=== PATIENT | female | born 1980 | race Two or more races ===

== ENCOUNTER 2017-02-18 11:31 | Emergency (ER) | payer SELFPAY ==
[~2017-02-18] VITALS: Ht 157.5 cm; Wt 111.1 kg
[~2017-02-18 11:31] MED LIST: FLUT1DIS3 IH; Guaifenesin/Dextromethorphan PO; PRED20TA PO
[2017-02-18 11:50] VITALS: BP 127/65
[2017-02-18] MEDS ORDERED: DIPHTH,PERTUSS(ACELL),TET TOX 0.5 ML DISP.SYRIN. VAX IM ONE (12:15)
[2017-02-18] MEDS ORDERED: CEPH500T PO (12:21)
--- NOTE | 2017-02-18 12:21 | PHYS DOC ---
Past Medical History Past Medical History: Asthma, Hypertension Past Surgical History: Appendectomy Alcohol Use: None Drug Use: None Adult General Chief Complaint Chief Complaint: FOOT INJURY PAIN HPI HPI Patient is a 36 year old female with history of hypertension and asthma who presents with puncture wounds to bilateral feet after stepping on nails today. Patient states her bed and broke last night and early this morning she accidentally stepped on the nails from the bed. She did not have shoes on. Review of Systems Review of Systems Constitutional: Denies fever or chills [] Musculoskeletal: Denies back pain or joint pain [] Integument: puncture wounds to bilateral feet Neurologic: Denies headache, focal weakness or sensory changes [] Endocrine: Denies polyuria or polydipsia [] Current Medications Current Medications Current Medications Medications (Trade) Dose Ordered Sig/Chel Start Time Stop Time Status Last Admin Dose Admin Diphtheria/ Tetanus/Acell Pertussis (Boostrix) 0.5 ml ONCE ONCE 02/18/17 12:15 02/18/17 12:16 Allergies Allergies Allergies Coded Allergies Type Severity Reaction Last Updated Verified kiwi Allergy Severe rash, lips swell 03/31/14 No No Known Medication Allergies Allergy Unknown 03/30/14 Yes Physical Exam Physical Exam Constitutional: Well developed, well nourished, no acute distress, non-toxic appearance. [] HENT: Normocephalic, atraumatic, bilateral external ears normal, oropharynx moist, no oral exudates, nose normal. [] Skin: Right foot between the proximal first metatarsal on the second metatarsal with a puncture wound approximately 0.5 x 0.5 cm in n shape. Left arc of the foot with a tiny puncture wound approximately 0.1 x 0.1 cm. Neurovascular exam intact bilateral lower extremities. +2 bilateral pedal pulses. Back: No tenderness, no CVA tenderness. [] Extremities: No tenderness, no cyanosis, no clubbing, ROM intact, no edema. [] Neurologic: Alert and oriented X 3, normal motor function, normal sensory function, no focal deficits noted. [] Psychologic: Affect normal, judgement normal, mood normal. [] Current Patient Data Vital Signs Vital Signs Date Time Temp Pulse Resp B/P (MAP) Pulse Ox O2 Delivery O2 Flow Rate FiO2 02/18/17 11:50 97.6 72 18 96 Room Air 97.6 EKG EKG [] Radiology/Procedures Radiology/Procedures [] Course & Med Decision Making Course & Med Decision Making Pertinent Labs and Imaging studies reviewed. (See chart for details) Patient has puncture wounds to bilateral feet after stepping on nails in her house. She was given tetanus in the ED and discharged with cephalexin. Instructed to keep the areas clean and dry. Provided return precautions and discharged in stable condition. Dragon Disclaimer Dragon Disclaimer This electronic medical record was generated, in whole or in part, using a voice recognition dictation system. Departure Departure Impression: Primary Impression: Puncture wound of foot, right Additional Impression: Puncture wound of foot, left Disposition: HOME, SELF-CARE Condition: STABLE Referrals: NO PCP (PCP) Follow-up with your doctor as needed Patient Instructions: Puncture Wound, [id number] Additional Instructions: You were seen with puncture wounds to bilateral feet. Keep the affected areas clean and dry. Apply Neosporin to the area twice a day. Complete your antibiotics. Monitor the areas for signs and symptoms of infection including but not limited to increased redness warmth or odor drainage from the area and return to the ED if they occur. Follow-up with the primary care doctor in one to 2 weeks as needed. Scripts Cephalexin (CEPHALEXIN) 500 Mg Tablet 1 TAB PO QID, #40 TAB Prov: BERNARDINO PRECIADO APRN 02/18/17 Problem Qualifiers Primary Impression: Puncture wound of foot, right Encounter type: initial encounter Qualified Codes: S91.331A - Puncture wound without foreign body, right foot, initial encounter Additional Impression: Puncture wound of foot, left Encounter type: initial encounter Qualified Codes: S91.332A - Puncture wound without foreign body, left foot, initial encounter BERNARDINO PRECIADO APRN Feb 18, 2017 12:21
== END 2017-02-18 12:29 | disposition home or self-care (01) ==
LOC: ER 11:31
DX: S91.332A Puncture wound without foreign body, left foot, initial encounter (principal); S91.331A Puncture wound without foreign body, right foot, initial encounter; I10 Essential (primary) hypertension; J45.909 Unspecified asthma, uncomplicated; Z90.49 Acquired absence of other specified parts of digestive tract; W22.8XXA Striking against or struck by other objects, initial encounter; Y93.89 Activity, other specified; Y92.89 Other specified places as the place of occurrence of the external cause; Y99.8 Other external cause status
CPT/HCPCS: 90471; 90715; 99283-25

== ENCOUNTER 2017-06-08 08:57 | Emergency (ER) | payer SELFPAY ==
[~2017-06-08] VITALS: Ht 154.9 cm; Wt 112.9 kg
[~2017-06-08 08:57] MED LIST changes: +CEPH500T PO
[2017-06-08] MEDS ORDERED: IPRATROPIUM BROMIDE 0.5 MG/2.5 ML NEBU. NEB ONE (09:15)
[2017-06-08] MEDS ORDERED: predniSONE 20 MG TABLET PO ONE (09:15)
[2017-06-08] MEDS ORDERED: ALBUTEROL SULFATE 2.5 MG/3 ML NEBU. CONT NEB ONE (09:15)
--- NOTE | 2017-06-08 10:03 | PHYS DOC ---
Past Medical History Past Medical History: Asthma, Hypertension, Hypothyroid Past Surgical History: Appendectomy Additional Past Surgical Histo: CARPAL TUNNEL R HAND Alcohol Use: None Drug Use: None Adult General Chief Complaint Chief Complaint: ASTHMA HPI HPI Patient is a 36 year old -[place] female who presents with persistent asthma exacerbation for the past week. Patient reports shortness of breath and wheezing please of congestion rhinorrhea. Patient has used albuterol inhaler 3 times in the past 12 hours with limited relief. reports minimally productive cough with clear sputum.Denies fever chills nausea vomiting and sweats. patient' s previously been admitted to the hospital for asthma attacks.Mr. 5 weeks ago. No other acute symptoms or complaints. Review of Systems Review of Systems ROS as per HPI [] All other systems were reviewed and found to be within normal limits, except as documented in this note. Current Medications Current Medications Current Medications Medications (Trade) Dose Ordered Sig/Chel Start Time Stop Time Status Last Admin Dose Admin Albuterol Sulfate (Ventolin Neb Soln) 5 mg 1X ONCE 06/08/17 11:45 06/08/17 11:46 DC 06/08/17 11:43 5 MG Ipratropium [place] (Atrovent) 0.5 mg 1X ONCE 06/08/17 09:15 06/08/17 09:20 DC 06/08/17 09:27 0.5 MG Prednisone (Prednisone) 60 mg 1X ONCE 06/08/17 09:15 06/08/17 09:20 DC 06/08/17 09:23 60 MG Allergies Allergies Allergies Coded Allergies Type Severity Reaction Last Updated Verified kiwi Allergy Severe rash, lips swell 03/31/14 No No Known Medication Allergies Allergy Unknown 03/30/14 Yes Physical Exam Physical Exam Constitutional: Well developed, well nourished, no acute distress, non-toxic appearance. [] HENT: Normocephalic, atraumatic, bilateral external ears normal, oropharynx moist, no oral exudates, nose normal. [] Eyes: PERRLA, EOMI, conjunctiva normal, no discharge. [] Neck: Normal range of motion, no tenderness, supple, no stridor. [] Cardiovascular:Heart rate regular rhythm, no murmur [] Lungs & Thorax: Bilateral breath sounds clear to auscultation [] Abdomen: Bowel sounds normal, soft, no tenderness, no masses, no pulsatile masses. [] Skin: Warm, dry. [] Back: No tenderness, no CVA tenderness. [] Extremities: No tenderness, no edema. [] Neurologic: Alert and oriented X 3, normal motor function, normal sensory function, no focal deficits noted. [] Psychologic: Affect normal, judgement normal, mood normal. [] Current Patient Data Vital Signs Vital Signs Date Time Temp Pulse Resp B/P (MAP) Pulse Ox O2 Delivery O2 Flow Rate FiO2 06/08/17 11:45 Room Air 06/08/17 11:32 80 20 117/60 (79) 98 06/08/17 09:07 98.0 98.0 EKG EKG [] Radiology/Procedures Radiology/Procedures ] Course & Med Decision Making Course & Med Decision Making Pertinent Labs and Imaging studies reviewed. (See chart for details) [Patient symptoms improved markedly with prednisone and breathing treatments. Will continue supportive treatment with PCP follow-up. Return precautions reviewed.] Dragon Disclaimer Dragon Disclaimer This electronic medical record was generated, in whole or in part, using a voice recognition dictation system. Departure Departure Impression: Primary Impression: Asthma exacerbation Disposition: 01 HOME, SELF-CARE Condition: GOOD Referrals: UNKNOWN PCP NAME (PCP) Patient Instructions: Asthma, Acute Bronchospasm Additional Instructions: Stay indoors for the next 2 days. Take breathing and steroids as directed. Follow up with your PCP. Return to the ED if new or worsening symptoms. ARIANNA REMY DO Jun 08, 2017 10:03
[2017-06-08] MEDS ORDERED: ALBUTEROL SULFATE 2.5 MG/3 ML NEBU. NEB ONE (11:45)
[2017-06-08 12:07] VITALS: BP 127/60
== END 2017-06-08 12:07 | disposition home or self-care (01) ==
LOC: ER 08:57
DX: J45.901 Unspecified asthma with (acute) exacerbation (principal); I10 Essential (primary) hypertension; E03.9 Hypothyroidism, unspecified; Z91.018 Allergy to other foods
CPT/HCPCS: 94250; 94644; 99285; J7512; J7613; J7644; 94640

== ENCOUNTER 2018-03-12 21:40 | Emergency (ER) | payer SELFPAY ==
[~2018-03-12] VITALS: Ht 154.9 cm; Wt 112.0 kg
[2018-03-12 21:46] VITALS: BP 138/84
[2018-03-12] MEDS ORDERED: ONDA4TAB12 PO (22:19)
[2018-03-12] MEDS ORDERED: BUTA1TAB23 PO (22:19)
--- NOTE | 2018-03-12 22:20 | PHYS DOC ---
Past Medical History Past Medical History: Asthma, Hypertension, Hypothyroid Past Surgical History: Appendectomy Additional Past Surgical Histo: CARPAL TUNNEL R HAND Additional Information: Former smoker Alcohol Use: None Drug Use: None Adult General Chief Complaint Chief Complaint: HEADACHE HPI HPI 37-year-old female presents with 2 day history of headache with associated nausea. Patient reports sensitivity to light and to motion. Patient does report some associated dizziness. Patient does report some nasal congestion for which patient's PCP recently started her on antibiotics. Denies chest pain. Denies fever/chills. Denies recent trauma. Denies . Review of Systems Review of Systems Constitutional: Denies fever or chills [] Eyes: Reports photophobia, Denies visual changes. HENT: Reports some sinus congestion, denies epistaxis Respiratory: Denies cough or shortness of breath [] Cardiovascular: Denies chest pain or palpitations GI: Denies abdominal pain or vomiting. 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 Musculoskeletal: Denies back pain or neck pain [] Integument: Denies rash or skin lesions [] Neurologic: Reports headache, Denies focal weakness or sensory changes [] Complete systems were reviewed and found to be within normal limits, except as documented in this note. Current Medications Current Medications Current Medications Medications (Trade) Dose Ordered Sig/Chel Start Time Stop Time Status Last Admin Dose Admin Dexamethasone Sodium Phosphate (Decadron) 10 mg 1X ONCE 03/12/18 22:30 03/12/18 22:31 DC 03/12/18 23:01 10 MG Diphenhydramine HCl (Benadryl) 50 mg 1X ONCE 03/12/18 22:30 03/12/18 22:31 DC 03/12/18 23:00 50 MG Ketorolac Tromethamine (Toradol 30mg Vial) 30 mg 1X ONCE 03/12/18 22:30 03/12/18 22:31 DC 03/12/18 22:59 30 MG Metoclopramide HCl (Reglan Vial) 10 mg 1X ONCE 03/12/18 22:30 03/12/18 22:31 DC 03/12/18 23:01 10 MG Sodium Chloride 1,000 ml @ 1,000 mls/hr 1X ONCE 03/12/18 22:30 03/12/18 23:29 03/12/18 22:48 1,000 MLS/HR Allergies Allergies Allergies Coded Allergies Type Severity Reaction Last Updated Verified kiwi Allergy Severe rash, lips swell 03/31/14 No No Known Medication Allergies Allergy Unknown 03/30/14 Yes Physical Exam Physical Exam Constitutional: Well developed, well nourished, no acute distress, non-toxic appearance. [] HENT: Normocephalic, atraumatic, bilateral external ears normal, oropharynx moist, mild right maxillary tenderness noted Eyes: PERRL, EOMI, conjunctiva normal, no discharge. No nystagmus Neck: Normal range of motion, no tenderness, supple, no meningeal signs Cardiovascular: Heart rate regular rhythm, no murmur [] Lungs & Thorax: Bilateral breath sounds clear to auscultation [] Abdomen: Soft, no tenderness Skin: Warm, dry, no erythema, no rash. [] Back: No tenderness, no CVA tenderness. [] Extremities: No tenderness, ROM intact, no edema. [] Neurologic: Alert and oriented X 3, normal motor function, normal sensory function, no focal deficits noted. Cerebellar function normal. Psychologic: Affect normal, judgement normal, mood normal. [] Current Patient Data Vital Signs Vital Signs Date Time Temp Pulse Resp B/P (MAP) Pulse Ox O2 Delivery O2 Flow Rate FiO2 03/12/18 21:46 98.5 71 20 138/84 (102) 98 Room Air 98.5 EKG EKG [] Radiology/Procedures Radiology/Procedures [] Course & Med Decision Making Course & Med Decision Making Neurologically intact patient presents with report of headache. History of recently being started on antibiotics for possible sinusitis. Mild tenderness noted to maxillary sinus. No meningeal signs appreciated. Patient afebrile. No history of recent trauma. Symptomatic treatment provided with interval improvement of symptoms. Patient stable for discharge with outpatient follow-up with PCP. Discussed findings and plan with patient, who acknowledges understanding and agreement. Dragon Disclaimer Dragon Disclaimer This electronic medical record was generated, in whole or in part, using a voice recognition dictation system. Departure Departure Impression: Primary Impression: Headache Disposition: 01 HOME, SELF-CARE Condition: IMPROVED Referrals: HAFSA BARBER MD (PCP) Patient Instructions: Headache, FAQs Additional Instructions: Take your previously prescribed antibiotics until complete. Scripts Butalb/Acetaminophen/Caffeine ([id number] 50-325-40) 1 Each Tablet 1 EACH PO Q6HRS PRN for HEADACHE, #14 TAB Prov: ADAMA COLON DO 03/12/18 Ondansetron (ONDANSETRON ODT) 4 Mg Tab.rapdis 1 TAB PO PRN Q6-8HRS for VOMITING, #16 TAB Prov: ADAMA COLON DO 03/12/18 Problem Qualifiers Primary Impression: Headache Headache type: unspecified Headache chronicity pattern: acute headache Intractability: not intractable Qualified Codes: R51 - Headache ADAMA COLON DO Mar 12, 2018 22:19
[2018-03-12] MEDS ORDERED: METOCLOPRAMIDE HCL 10 MG/2 ML VIAL. IV ONE (22:30)
[2018-03-12] MEDS ORDERED: DEXAMETHASONE SOD PHOS 20 MG/5 ML VIAL. IV ONE (22:30)
[2018-03-12] MEDS ORDERED: IV NORMAL SALINE 1000ML BAG 1,000 ML IV ONE (22:30)
[2018-03-12] MEDS ORDERED: KETOROLAC 30 MG/ML VIAL. IV ONE (22:30)
[2018-03-12] MEDS ORDERED: diphenhydrAMINE 50 MG/ML VIAL IVP ONE (22:30)
== END 2018-03-13 00:24 | disposition home or self-care (01) ==
LOC: ER 21:40
DX: R51 Headache (principal); R11.0 Nausea; R42 Dizziness and giddiness; R09.81 Nasal congestion; Z91.018 Allergy to other foods; J45.909 Unspecified asthma, uncomplicated; I10 Essential (primary) hypertension; E03.9 Hypothyroidism, unspecified; Z87.891 Personal history of nicotine dependence; Z90.89 Acquired absence of other organs
CPT/HCPCS: 96361; 96374; 96375; 99284; J1100; J1200; J1885; J2765; J7030

== ENCOUNTER 2019-10-31 23:09 | Emergency (ER) | payer SELFPAY ==
[~2019-10-31] VITALS: Ht 154.9 cm; Wt 121.0 kg
[~2019-10-31 23:09] MED LIST changes: +BUTA1TAB23 PO; +ONDA4TAB12 PO; +OSEL75CA PO
[2019-10-31] MEDS ORDERED: DEXAMETHASONE SOD PHOS 4 MG/ML VIAL IVP ONE (23:45)
[2019-10-31] MEDS ORDERED: IV NORMAL SALINE 1000ML BAG 1,000 ML IV ONE (23:45)
[2019-11-01 00:05] LABS: BASO # 0.1 x10^3/uL (0.0-0.2); BASO % 1 % (0-3); EOS # 1.2 x10^3/uL (0.0-0.7); EOS % 11 % (0-3); HEMATOCRIT 40.8 % (36.0-47.0); LYMPH % 28 % (24-48); MEAN CORPUSCULAR HEMOGLOBIN 30 pg (25-35); MEAN CORPUSCULAR HGB CONC 34 g/dL (31-37); MEAN CORPUSCULAR VOLUME 88 fL (79-100); MONO # 0.6 x10^3/uL (0.0-1.1); MONO % 5 % (0-9); NEUT % 56 % (31-73); PLATELET COUNT 243 x10^3/uL (140-400); RED BLOOD COUNT 4.65 x10^6/uL (3.50-5.40); RED CELL DISTRIBUTION WIDTH 13.7 % (11.5-14.5); WHITE BLOOD COUNT 10.8 x10^3/uL (4.0-11.0)
[2019-11-01 00:11] LABS: CALCIUM 8.7 mg/dL (8.5-10.1); CREATININE 1.2 mg/dL (0.6-1.0); GFR 49.8; POTASSIUM 3.6 mmol/L (3.5-5.1)
[2019-11-01 00:17] LABS: INFLUENZA A PATIENT NEGATIVE (NEGATIVE); INFLUENZA B PATIENT NEGATIVE (NEGATIVE)
--- NOTE | 2019-11-01 00:23 | PHYS DOC ---
Past Medical History Past Medical History: Asthma, Hypertension, Hypothyroid Past Surgical History: Appendectomy Additional Past Surgical Histo: CARPAL TUNNEL R HAND Smoking Status: Former Smoker Alcohol Use: None Drug Use: None Adult General Chief Complaint Chief Complaint: SHORTNESS OF BREATH HPI HPI 39-year-old female with past medical history of asthma presents with report of increased wheezing and productive cough 1 month. Patient reports his been worse over the last few days. Patient has been using home nebulizer treatments and rescue inhaler without significant improvement. Denies known sick contacts. Denies fever or chills. Denies travel outside the [place]. Denies . Reports last menstrual period ended a few days ago. Denies leg swelling or calf tenderness. Review of Systems Review of Systems Constitutional: Denies fever or chills Eyes: Denies redness or eye pain HENT: Denies nasal congestion or sore throat Respiratory: Reports productive cough, shortness of breath, and wheezing Cardiovascular: Denies chest pain or palpitations GI: Denies abdominal pain, nausea, or vomiting : Denies dysuria or hematuria Musculoskeletal: Denies back pain or joint pain Integument: Denies rash or skin lesions Neurologic: Denies headache, focal weakness or sensory changes Complete systems were reviewed and found to be within normal limits, except as documented in this note. Current Medications Current Medications Current Medications Medications (Trade) Dose Ordered Sig/Chel Start Time Stop Time Status Last Admin Dose Admin Dexamethasone Sodium Phosphate (Decadron) 10 mg 1X ONCE 10/31/19 23:45 10/31/19 23:46 DC 10/31/19 23:52 10 MG Sodium Chloride 1,000 ml @ 1,000 mls/hr 1X ONCE 10/31/19 23:45 11/01/19 00:44 DC 10/31/19 23:51 1,000 MLS/HR Allergies Allergies Allergies Coded Allergies Type Severity Reaction Last Updated Verified kiwi Allergy Severe rash, lips swell 03/31/14 No No Known Medication Allergies Allergy Unknown 03/30/14 Yes Physical Exam Physical Exam Constitutional: Well developed, well nourished, no acute distress, non-toxic appearance HENT: Normocephalic, atraumatic Eyes: Conjunctiva normal, no discharge Neck: Normal range of motion, no tenderness, supple Cardiovascular: Heart rate normal, regular rhythm Lungs & Thorax: Bilateral breath sounds clear to auscultation, diffuse wheezing, no rhonchi or rails Abdomen: Soft, no tenderness Skin: Warm, dry, no erythema, no rash Extremities: No tenderness, ROM intact, no edema Neurologic: Alert and oriented X 3, no focal deficits noted Psychologic: Affect normal, judgment normal Current Patient Data Vital Signs Vital Signs Date Time Temp Pulse Resp B/P (MAP) Pulse Ox O2 Delivery O2 Flow Rate FiO2 11/01/19 00:52 80 20 110/70 (83) 94 Room Air 10/31/19 23:55 95.0 10/31/19 23:21 98.3 98.3 Lab Values Laboratory Tests Test 10/31/19 23:36 10/31/19 23:40 Influenza Type A Antigen Negative (NEGATIVE) Influenza Type B Antigen Negative (NEGATIVE) White Blood Count 10.8 x10^3/uL (4.0-11.0) Red Blood Count 4.65 x10^6/uL (3.50-5.40) Hemoglobin 14.0 g/dL (12.0-15.5) Hematocrit 40.8 % (36.0-47.0) Mean Corpuscular Volume 88 fL (79-100) Mean Corpuscular Hemoglobin 30 pg (25-35) Mean Corpuscular Hemoglobin Concent 34 g/dL (31-37) Red Cell Distribution Width 13.7 % (11.5-14.5) Platelet Count 243 x10^3/uL (140-400) Neutrophils (%) (Auto) 56 % (31-73) Lymphocytes (%) (Auto) 28 % (24-48) Monocytes (%) (Auto) 5 % (0-9) Eosinophils (%) (Auto) 11 % (0-3) H Basophils (%) (Auto) 1 % (0-3) Neutrophils # (Auto) 6.0 x10^3/uL (1.8-7.7) Lymphocytes # (Auto) 3.0 x10^3/uL (1.0-4.8) Monocytes # (Auto) 0.6 x10^3/uL (0.0-1.1) Eosinophils # (Auto) 1.2 x10^3/uL (0.0-0.7) H Basophils # (Auto) 0.1 x10^3/uL (0.0-0.2) Segmented Neutrophils % 51 % (35-66) Lymphocytes % 35 % (24-48) Monocytes % 1 % (0-10) Eosinophils % 12 % (0-5) H Basophils % 1 % (0-3) Platelet Estimate Adequate (ADEQUATE) D-Dimer (Ginger) < 0.27 ug/mlFEU Sodium Level 142 mmol/L (136-145) Potassium Level 3.6 mmol/L (3.5-5.1) Chloride Level 106 mmol/L (98-107) Carbon Dioxide Level 24 mmol/L (21-32) Anion Gap 12 (6-14) Blood Urea Nitrogen 13 mg/dL (7-20) Creatinine 1.2 mg/dL (0.6-1.0) H Estimated GFR (Cockcroft-Gault) 49.8 BUN/Creatinine Ratio 11 (6-20) Glucose Level 119 mg/dL (70-99) H Lactic Acid Level 1.4 mmol/L (0.4-2.0) Calcium Level 8.7 mg/dL (8.5-10.1) Total Bilirubin 0.3 mg/dL (0.2-1.0) Aspartate Amino Transferase (AST) 23 U/L (15-37) Alanine Aminotransferase (ALT) 36 U/L (14-59) Alkaline Phosphatase 70 U/L (46-116) Lactate Dehydrogenase 188 U/L (81-234) Creatine Kinase 218 U/L (26-192) H Creatine Kinase MB (Mass) 1.4 ng/mL (0.0-3.6) Creatine Kinase MB Relative Index 0.6 % (0-4) Troponin I Quantitative < 0.017 ng/mL (0.000-0.055) FR-Ojg-M-Type Natriuretic Peptide 79 pg/mL (0-124) Total Protein 7.1 g/dL (6.4-8.2) Albumin 3.7 g/dL (3.4-5.0) Albumin/Globulin Ratio 1.1 (1.0-1.7) Laboratory Tests 10/31/19 23:40 Laboratory Tests 10/31/19 23:40 EKG EKG @2321 NSR at 88bpm, NO ST elevation Radiology/Procedures Radiology/Procedures PROCEDURE: CHEST AP ONLY EXAM: CHEST ONE VIEW. HISTORY: Cough. COMPARISON: 07/20/2019. FINDINGS: A frontal view of the chest is obtained. There are no confluent infiltrates. There is no pneumothorax or pleural effusion. The heart is not enlarged. IMPRESSION: 1. No confluent infiltrates. Electronically signed by: Casa Gant MD (11/01/2019 12:33 AM) [facility] Course & Med Decision Making Course & Med Decision Making Pertinent Labs and Imaging studies reviewed. (See chart for details) Patient with past medical history of asthma presents with increased wheezing. Patient has had some symptoms over the last month. Reports use of her home nebulizer and MDI without significant improvement. Denies fever. Reports productive cough. Denies recent travel or exposure to known sick contact. Labs o btained and posted to chart. EKG stable. Chest x-ray without acute process. Patient given a spacer to use with her MDI. Sats stable throughout. Patient currently not meeting criteria for COVID-19 at this time. Patient more at risk of reinaldo COVID-19 by admission to hospital. Patient has nebulizer machine at home. Shared decision making with patient with decision to discharge to home. Patient with creatinine which is increased from prior per [employer] review. Patient advised of need to follow closely with her doctor to have it rechecked. Patient stable for discharge with outpatient follow-up with PCP/manager market. Pulmonology referral provided. Discussed findings and plan with patient, who acknowledges understanding and agreement. Dragon Disclaimer Dragon Disclaimer This electronic medical record was generated, in whole or in part, using a voice recognition dictation system. Departure Departure Impression: Primary Impression: Asthma exacerbation Additional Impression: Renal insufficiency Disposition: 01 HOME, SELF-CARE Condition: STABLE Referrals: HAFSA BARBER MD (PCP) ANILA ALAS MD Patient Instructions: Asthma, Adult, [id number], Chronic Renal Insufficiency Additional Instructions: Take all your inhaled medication through the spacer that was provided to you. We did not test you for COVID-19 because you did not met criteria to be tested in the Emergency Department. That testing is reserved for our sickest patients. COVID-19 infection is still possible. Therefore you should self quarantine. Please follow closely with your doctor. Your Creatnine (kidney function) was slightly higher than it was before. Please increased your fluid hydration and have your doctor recheck it. Scripts Ipratropium/Albuterol Sulfate (DUONEB 0.5-3(2.5) MG/3 ML) 3 Ml Ampul.neb 3 ML NEB QID PRN for WHEEZING, #100 EACH Prov: ADAMA COLON DO 11/01/19 Albuterol Sulfate (PROAIR HFA INHALER) 8.5 Gm Hfa.aer.ad 2 PUFF IH PRN Q4-6HRS PRN for wheezing for 21 Days, #1 INHALER 0 Refills Prov: ADAMA COLON DO 11/01/19 Prednisone (PREDNISONE) 20 Mg Tablet 2 TAB PO DAILY, #8 TAB Start this prescription tomorrow, Thursday11/02/19 Prov: ADAMA COLON DO 11/01/19 Problem Qualifiers Primary Impression: Asthma exacerbation Asthma severity: moderate Asthma persistence: persistent Qualified Codes: J45.41 - Moderate persistent asthma with (acute) exacerbation ADAMA COLON DO Nov 01, 2019 00:23
[2019-11-01 00:25] LABS: ALBUMIN 3.7 g/dL (3.4-5.0); ALBUMIN/GLOBULIN RATIO 1.1 (1.0-1.7); TOTAL BILIRUBIN 0.3 mg/dL (0.2-1.0); TOTAL PROTEIN 7.1 g/dL (6.4-8.2)
--- NOTE | 2019-11-01 00:36 | RAD ---
EXAM: CHEST ONE VIEW. HISTORY: Cough. COMPARISON: 07/20/2019. FINDINGS: A frontal view of the chest is obtained. There are no confluent infiltrates. There is no pneumothorax or pleural effusion. The heart is not enlarged. IMPRESSION: 1. No confluent infiltrates. Electronically signed by: Casa Gant MD (11/01/2019 12:33 AM) [facility]
[2019-11-01 00:45] LABS: % BASOS 1 % (0-3); % EOS 12 % (0-5); % LYMPHS 35 % (24-48); % MONOS 1 % (0-10); % SEGS 51 % (35-66); PLT ESTIMATE ADEQUATE (ADEQUATE)
[2019-11-01 00:52] VITALS: BP 110/70
[2019-11-01] MEDS ORDERED: IPRA3AMP29 NEB (00:57)
[2019-11-01] MEDS ORDERED: ALBU2.5V8 IH (00:57)
[2019-11-01] MEDS ORDERED: PRED20TA PO (00:57)
--- NOTE | 2019-11-02 07:54 | EKG ---
[facility] [address] [place] [address] Test Date: 2019-10-31 Test Time: 23:21:41 Pat Name: HOWARD MACHUCA Department: Room: Gender: Pick Up Man: : 1980 Requested By: ADAMA COLON Order Number: [id number] Reading MD: Andrew Cortes MD Measurements Intervals [place] Rate: P: SD: QRS: QRSD: T: QT: QTc: Interpretive Statements SR Electronically Signed On 11-02-2019 9:42:28 CDT by Andrew Cortes MD
== END 2019-11-01 01:32 | disposition home or self-care (01) ==
LOC: ER 23:09
DX: J45.41 Moderate persistent asthma with (acute) exacerbation (principal); N28.9 Disorder of kidney and ureter, unspecified; I10 Essential (primary) hypertension; E03.9 Hypothyroidism, unspecified; Z87.891 Personal history of nicotine dependence; Z91.018 Allergy to other foods
CPT/HCPCS: 36415; 71045; 80053; 82553; 83605; 83615; 83880; 84484; 85007; 85025; 85379; 87804; 94640; 96374; 99285; J1100; J7030; 93005; 94664